=== PATIENT | male | born 1960 | race Asian ===

== ENCOUNTER 2016-12-12 09:26 | Emergency (ER) | payer OTHER ==
[2016-12-12 09:34] VITALS: BP 123/62
--- NOTE | 2016-12-12 10:18 | UC ---
Dental HPI - HPI Summary HPI Summary: L front tooth hurting for a few days, now has a "bubble" in the gum, pt worried about infection. Has had problems with this same tooth at least two other times in the last 1-2 years. - History of Current Complaint Chief Complaint: UCDentalProblem Stated Complaint: DENTAL PAIN Time Seen by Provider: 12/12/16 09:53 Hx Obtained From: Patient Onset/Duration: Gradual Onset, Lasting Days Severity: Moderate Aggravating: Heat, Cold, Chewing Related History: Swelling - Allergies/Home Medications Allergies/Adverse Reactions: Allergies Allergy/AdvReac Type Severity Reaction Status Date / Time Amoxicillin Allergy Mild Hives Verified 12/12/16 09:34 Home Medications: Home Medications Aspirin [Aspirin 81 MG TAB] 1 tab PO DAILY 12/12/16 [History Confirmed 12/12/16] Atorvastatin* [Lipitor 10 MG*] 1 tab PO DAILY 12/12/16 [History Confirmed ] Multiple Vitamin [Multi Vitamin] 1 tab PO DAILY 12/12/16 [History Confirmed 05/30] [place]-3 Fatty Acids [Fish Oil] 1 tab PO DAILY 12/12/16 [History Confirmed ] Ticagrelor [Brilinta 60 MG TAB] 1 tab PO DAILY 12/12/16 [History Confirmed 12/12] PMH/Surg Hx/FS Hx/Imm Hx Cardiovascular History: Hypertension, Myocardial Infarction Other Cardiovascular History: stent Other History Of: Negative For: Anticoagulant Therapy - Surgical History Surgical History: Yes Surgery Procedure, Year, and Place: ACL left knee, 2002 - Family History Known Family History: Positive: Cardiac Disease, Hypertension - Social History Occupation: Employed Full-time Alcohol Use: Rare Substance Use Type: None Smoking Status (MU): Light Every Day Tobacco Smoker Type: Cigarettes Amount Used/How Often: 4 CIGARETTES DAILY Have You Smoked in the Last Year: No When Did the Patient Quit Smoking/Using Tobacco: 5 yrs ago Cessation Counseling: Patient Advised to Stop - Immunization History Most Recent Influenza Vaccination: NONE Most Recent Tetanus Shot: UNKNOWN Most Recent Pneumonia Vaccination: NONE Review of Systems Constitutional: Negative Skin: Negative Eyes: Negative ENT: Dental Pain Respiratory: Negative Cardiovascular: Negative Gastrointestinal: Negative Genitourinary: Negative Motor: Negative Neurovascular: Negative Musculoskeletal: Negative Neurological: Negative Psychological: Negative All Other Systems Reviewed And Are Negative: Yes Physical Exam Triage Information Reviewed: Yes Appearance: Well-Appearing, No Pain Distress, Well-Nourished Vital Signs: Initial Vital Signs Temp 98.6 F 12/12/16 09:28 Pulse 64 12/12/16 09:28 Resp 18 12/12/16 09:28 BP 123/62 12/12/16 09:28 Pulse Ox 100 12/12/16 09:28 Vital Signs Reviewed: Yes Eye Exam: Normal, Other - PERRL Eyes: Positive: Conjunctiva Clear ENT Exam: Normal ENT: Positive: Normal ENT inspection, Hearing grossly normal, Pharynx normal, TMs normal. Negative: Tonsillar swelling, Tonsillar exudate Dental: Positive: Percussion Tenderness @ - #9, Abscess @ - #9 Neck exam: Normal Neck: Positive: Supple, Nontender, No Lymphadenopathy Respiratory Exam: Normal Respiratory: Positive: Chest non-tender, Lungs clear, Normal breath sounds, No respiratory distress, No accessory muscle use Cardiovascular Exam: Normal Cardiovascular: Positive: RRR, No Murmur Musculoskeletal Exam: Normal Neurological Exam: Normal Neurological: Positive: Alert Psychological Exam: Normal Skin Exam: Normal Dental Complaint Course/Dx - Differential Dx/Diagnosis Provider Diagnoses: Dental abscess #9 Discharge - Discharge Plan Condition: Stable Disposition: HOME Prescriptions: Clindamycin Cap(NF) [Cleocin 300 mg Cap(NF)] 300 mg PO QID #28 cap Patient Education Materials: Dental Abscess (ED) Referrals: Orlin Rivera MD [Primary Care Provider] - Additional Instructions: Please follow up with a dentist for definitive care as soon as possible. The abscess may drain into your mouth, and if so this is ok. Simply rinse your mouth out with fresh water.
== END 2016-12-12 10:18 | disposition home or self-care (01) ==
LOC: UCEAST 09:26
DX: K04.7 Periapical abscess without sinus (principal); Z88.1 Allergy status to other antibiotic agents; I25.2 Old myocardial infarction; I10 Essential (primary) hypertension; Z95.5 Presence of coronary angioplasty implant and graft; F17.210 Nicotine dependence, cigarettes, uncomplicated
CPT/HCPCS: 99212; G0463